=== PATIENT | male | born 1965 | race Caucasian/White ===

== ENCOUNTER 2021-03-20 21:07 | Emergency (ER) | payer MEDICAID, SELFPAY ==
--- NOTE | ~2021-03-20 | CT_ITS ---
EXAMINATION: CT brain wo con DATE: 03/20/2021 21:36 INDICATION: Head injury. Neck pain. TECHNIQUE: Computed tomography (CT) of the head was performed without intravenous contrast. The mA wa s adjusted according to patient size. Iterative reconstruction technique was employed. The dose-lengt h product was 605.33 mGy-cm. COMPARISON: None FINDINGS: There is no intracranial hemorrhage, acute infarction, or abnormal intracranial mass lesion . The ventricles are normal in size. The mastoid air cells are normal. The paranasal sinuses are magnus r. There is left superior scalp soft tissue swelling. IMPRESSION: 1. Normal brain. Reviewed, dictated and finalized at location A. IMPRESSION: 1. Normal brain.
--- NOTE | ~2021-03-20 | CT_ITS ---
EXAMINATION: CT cervical spine wo con DATE: 03/20/2021 21:37 INDICATION: Neck pain. Fall. TECHNIQUE: Computed tomography (CT) of the cervical spine was performed without intravenous contrast. Automated exposure control and iterative reconstruction technique were employed. The dose-length pro duct was 407.11 mGy-cm. COMPARISON: None FINDINGS: There is 12 degrees levoscoliosis of cervical spine. Vertebral body heights are normal. The re is mildly decreased disc height at C6-C7. The following disc levels are specifically discussed: C2-C3: There is no uncovertebral joint osteoarthritis. There is moderate right and mild left facet nila int osteoarthritis. There is no neural foraminal stenosis. There is no central canal stenosis. C3-C4: There is mild bilateral uncovertebral joint osteoarthritis. There is moderate right and mild l eft facet joint osteoarthritis. There is no neural foraminal stenosis. There is no central canal sten osis. C4-C5: There is mild bilateral uncovertebral joint osteoarthritis. There is mild right facet joint os teoarthritis. There is no neural foraminal stenosis. There is no central canal stenosis. C5-C6: There is mild bilateral uncovertebral joint osteoarthritis. There is mild right facet joint os teoarthritis. There is no neural foraminal stenosis. There is no central canal stenosis. C6-C7: There is mild bilateral uncovertebral joint osteoarthritis. There is mild bilateral facet join t osteoarthritis. There is no neural foraminal stenosis. There is no central canal stenosis. C7-T1: There is no uncovertebral joint osteoarthritis. There is moderate right and severe left facet joint osteoarthritis. There is mild left neural foraminal stenosis. There is no central canal stenosi s. IMPRESSION: 1. No fracture. 2. Mild cervical spondylosis. Reviewed, dictated and finalized at location A.
--- NOTE | 2021-03-20 21:22 | ED.GENADULT ---
HPI - General Adult General Chief complaint: Fall Stated complaint: fall +loc Time Seen by Provider: 03/20/21 21:18 Source: RN notes reviewed History of Present Illness HPI narrative: Patient presents emergency department via EMS for a fall. 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 he denies any pain at this time he denies any headaches vision changes chest pain shortness of breath abdominal pain nausea vomiting or any other symptom Related Data Home Medications Medication Instructions Recorded Confirmed Lactobacillus acidophilus 100 mg PO DAILY 03/20/21 03/20/21 [Acidophilus] acetaminophen 325 mg PO ONCE 03/20/21 03/20/21 albuterol sulfate [Ventolin HFA] INHALATION 03/20/21 amino ac-protein hydr-whey pro ea 03/20/21 [ProSource] atorvastatin 10 mg PO DAILY 03/20/21 03/20/21 baclofen 10 mg PO BID 03/20/21 03/20/21 ergocalciferol (vitamin D2) 1,250 mcg PO WEEKLY 03/20/21 03/20/21 furosemide 40 mg PO DAILY 03/20/21 03/20/21 imatinib [Gleevec] 400 mg PO DAILY 03/20/21 03/20/21 levothyroxine 125 mcg PO DAILY 03/20/21 03/20/21 magnesium hydroxide [Milk of 03/20/21 Magnesia] melatonin 3 mg PO HS PRN 03/20/21 03/20/21 zozmgyydqova-naeo-mqmmx acid 1 tablet PO DAILY 03/20/21 03/20/21 [Centrum] sertraline 50 mg PO DAILY 03/20/21 03/20/21 Allergies Allergy/AdvReac Type Severity Reaction Status Date / Time No Known Allergies Allergy Verified 03/20/21 22:02 Review of Systems Review of Systems: Gen.: Denies fevers or chills Eyes: Denies eye pain or visual change ENT: Denies congestion Respiratory: Denies shortness of breath or cough CV: Denies chest pain or palpitations GI: Denies abdominal pain nausea, emesis or diarrhea Musculoskeletal: Denies back pain or muscle pain Neuro: See HPI Skin: Denies rash Except as documented, all other systems reviewed and negative [facility] Past Medical History Medical History (Updated 03/20/21 @ 22:21 by Eriberto Marino DO) Ataxia Social History Social History (Updated 03/20/21 @ 21:23 by Eriberto Marino DO) Smoking status: Never smoker Exam Narrative: APPEARANCE: No acute distress, nontoxic, resting in bed EYES: EOMI, PERRL HEENT: Normocephalic, small area swelling ecchymosis over left superior lateral scalp, nurse patient no facial tenderness Neck: Supple no midline tenderness palpation RESPIRATORY: No respiratory distress Clear to auscultation bilaterally with no rhonchi wheezing or rales. CARDIOVASCULAR: Regular rate and rhythm without murmurs rubs or gallops. ABDOMINAL: Soft, nontender, nondistended, no rebound or guarding MUSCULOSKELETAl: Moves all extremities. No clubbing, cyanosis or edema. Tender to palpation of bilateral upper lower extremities NEURO: Awake and alert x 4. Following commands, speech normal, no focal deficits SKIN:: Warm, dry. No rashes lesions or abrasions PSYCHIATRIC: Normal affect/mood, Course Course Emergency Course: Patient's brother is present states patient is at baseline Discussed with patient results of workup and diagnosis. Discussed need for follow-up with primary care, proper use of medication, and reasons to return to the emergency department. Patient understands and agrees to current treatment plan Vital Signs Vital signs: Vital Signs Temperature 98.2 F 03/20/21 21:29 Pulse Rate 110 H 03/20/21 21:29 Respiratory Rate 18 03/20/21 21:29 Blood Pressure 164/112 H 03/20/21 21:29 Pulse Oximetry 98 03/20/21 21:29 Temperature 98.2 F 03/20/21 21:29 Pulse Rate 110 H 03/20/21 21:29 Respiratory Rate 18 03/20/21 21:29 Blood Pressure 164/112 H 03/20/21 21:29 Pulse Oximetry 98 03/20/21 21:29 Medical D
[2021-03-20 21:29] VITALS: BP 164/112; PULSE 110; RESP 18; TEMP 36.8; O2SAT 98
== END 2021-03-20 22:53 | disposition home or self-care (01) ==
PROVIDERS: Emergency Provider Emergency Medicine
DX: S00.93XA Contusion of unspecified part of head, initial encounter (principal); M47.812 Spondylosis without myelopathy or radiculopathy, cervical region; W01.0XXA Fall on same level from slipping, tripping and stumbling without subsequent striking against object, initial encounter
CPT/HCPCS: 70450; 72125; 99284

== ENCOUNTER 2021-08-30 10:00 | Outpatient (RCR) | payer BC, SELFPAY ==
--- NOTE | 2021-08-02 08:21 | PTOPEVAL ---
PHYSICAL THERAPY EVALUATION AND PLAN OF CARE Thank you for referring Jermaine Beavers to [facility].? The patient is scheduled to be seen for therapy? 2x/week for 4 weeks. Please review, sign, date and return this plan of care MERY. I agree with and certify that the following plan of care is medically necessary. 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 He has Family decreased balance and has frequent falls. The most recent was going down a driveway on an incline and he lost his balance. States that he is not able to get off the floor by himself. He states he does have to have help to get up either froma person or from furniture. He walks on the treadmill 4-5x/wk for 30minutes. Pain Score Pain Score 0: Self Report Lower Extremity Muscle Strength Testing Hip Strength Bilateral Hip Flexion Strength 5 Normal Hip Extension Strength 3- Fair - Hip Abduction Strength 4- Good - Hip Medial Rotation Strength 3- Fair - Hip Lateral Rotation Strength 3- Fair - Knee Strength Bilateral Knee Flexion Strength 4+ Good + Knee Extension Strength 3 Fair Muscle Length Testing Muscle Length Testing Santosh Test Shortened Muscles Short (R) Iliopsoas,Short (L) Rectus Femoris Two-Joint Hip Flexor Shortened Muscles Short (R) Iliopsoas,Short (L) Iliopsoas,Short (R) Rectus Femoris,Short (L) Rectus Femoris Left Hamstring Length -35 Query Text:(90 - 90 Position) Right Hamstring Length -35 Query Text:(90 - 90 Position) Balance Assessment Mendes Balance Assessment 27/56 Comments always tends to touch on the // bars and at home describes that he would be touching furniture or a counter for most dynamic balance tasks Time Up Go (TUG) Timed Up and Go Test (TUG) (Seconds) 12 Assistive Devices None 5 Time Sit to Stand Time in Seconds 17.82 5 Time Sit to Stand Comments with arm rests; balance shifts Query Text:Daphney
--- NOTE | 2021-08-30 10:29 | PTOPEVAL ---
PHYSICAL THERAPY DISCHARGE NOTE Thank you for referring Jermaine Beavers to [facility].? Please review, sign, date and return this plan of care MERY. I agree with and certify that the following plan of care is medically necessary. Referring Physician Date Attending Provider: Flavio Garcia MD Discharge Outpatient Past Medical History Diagnosis ataxia, falls, poor balance Onset 10 years Cause spinocerebellar ataxia Subjective Information reports no new falls. Feels Query Text:As Reported By Patient/ like his balance and Family especially strength have improved quite a bit. He has his HEP and discussed with me how to progress and create variety in his HEP Pain Score Pain Score 0: Self Report Lower Extremity Muscle Strength Testing Hip Strength Bilateral Hip Flexion Strength 5 Normal Hip Extension Strength 3 Fair Hip Abduction Strength 4+ Good + Knee Strength Bilateral Knee Flexion Strength 5 Normal Knee Extension Strength 4 Good Balance Assessment Mendes Balance Assessment 40/56 Time Up Go (TUG) Timed Up and Go Test (TUG) (Seconds) 11 Assistive Devices None Comments 1 month ago = 12second 5 Time Sit to Stand Time in Seconds 11.10 5 Time Sit to Stand Comments no armrests used today Query Text:Normative Data: If Greater 1monht ago = 17.82 with arm Than 15 Seconds, 74% Increase Risk for rests Recurrent Falls with arm rests; balance shifts forward to toes PT Clinical Summary Jermaine is a 56 yo male presenting to outpatient physical therapy with diagnosis of spinocerebellar ataxia, a progressive disease causing poor balance and impaired gait. He participated in a month of physical therapy and was educated on HEP. He is consistent and committed to HEP and is understanding of how to use HEP to his advantage. I recommend Jermaine continue his HEP and we will discharge from PT at this time. PT Services Indicated No Rehabilitation Potential Good Patient/Caregiver's Personal Goals for improve strength and balance, Rehabilitation decrease falls Potential Barriers to
== END 2021-08-30 15:55 | disposition home or self-care (01) ==
LOC: ANHPT 10:00
PROVIDERS: PCP Family Medicine; Visit Provider Family Medicine
DX: G11.8 Other hereditary ataxias (principal)
CPT/HCPCS: 97110; 97162; 97530

== ENCOUNTER 2021-11-03 09:20 | Outpatient (CLI) | payer BC, SELFPAY ==
--- NOTE | ~2021-11-03 | MR_ITS ---
EXAMINATION: MR brain/brain stem wo con DATE: 11/03/2021 10:14 INDICATION: Ataxia, unspecified. TECHNIQUE: Magnetic resonance imaging (MRI) of the brain and brainstem was performed without intraven ous contrast. COMPARISON: Head CT 03/20/2021 FINDINGS: There is a punctate old microhemorrhage in left occipital lobe. There are scattered areas o f nonspecific increased T2-weighted signal intensity in the cerebral white matter, which is within no rmal limits for the patient's age. There is no acute ischemic infarct or abnormal mass lesion. The ve ntricles are normal in size. There is mild mucosal thickening in right maxillary sinus. The orbits ar e normal. The mastoid air cells are normal. IMPRESSION: 1. Punctate old microhemorrhage in left occipital lobe. Reviewed, dictated and finalized at location B.
== END 2021-11-03 09:21 | disposition home or self-care (01) ==
PROVIDERS: PCP Family Medicine; Visit Provider Psychiatry & Neurology Neurology
DX: R27.0 Ataxia, unspecified (principal)
CPT/HCPCS: 70551

== ENCOUNTER 2022-09-11 16:02 | Emergency (ER) | payer MEDICARE, MEDICAID, SELFPAY ==
[2022-09-11 16:16] VITALS: BP 141/122; PULSE 94; RESP 16; TEMP 36.8; O2SAT 99
--- NOTE | 2022-09-11 16:21 | ED.BACK ---
HPI - Back Pain/Injury General Chief Complaint: Back Pain/Injury Stated Complaint: Back Pain Time Seen by Provider: 09/11/22 16:18 Source: patient, RN notes reviewed and old records reviewed Mode of arrival: ambulatory Limitations: no limitations History of Present Illness HPI Narrative: 57-year-old male presents to the [facility] with complaints of low back pain. Patient states he has a history of lower back pain. Had seen a chiropractor and was told that he was out of alignment and needed a cortisone shot in his back. States that chiropractor told him to go the urgent care or to his primary for further evaluation. Related Data Home Medications Medication Instructions Recorded Confirmed aspirin 81 mg tablet,delayed 81 mg EVERY OTHER DAY 09/11/22 09/11/22 release atorvastatin 10 mg tablet 10 mg DAILY 09/11/22 09/11/22 lisinopril 5 mg tablet 5 mg DAILY 09/11/22 09/11/22 Allergies Allergy/AdvReac Type Severity Reaction Status Date / Time No Known Allergies Allergy Verified 09/11/22 16:21 Review of Systems Review of Systems: All systems reviewed & are unremarkable except as noted in HPI and below Constitutional: Constitutional: Reports no additional constitutional complaints Eyes: Eyes: Reports no additional eye complaints ENT: Reports system reviewed and no additional complaints, except as documented Cardiovascular: Cardiovascular: Reports no additional cardiovascular complaints, Denies chest pain and Denies dyspnea Respiratory: Respiratory: Reports no additional respiratory complaints, Denies chest congestion, Denies cough and Denies dyspnea Gastrointestinal: Gastrointestinal: Reports no additional gastrointestinal complaints, Denies abdominal pain, Denies nausea and Denies vomiting Musculoskeletal: Musculoskeletal: Reports as per HPI Integumentary/Breasts: Skin/Breast: Reports system reviewed and no additional complaints, except as docu Neurologic: Reports system reviewed and no additional complaints, except as documented Psychiatric: Psychiatric: Reports no additional psychiatric complaints Allergic/Immunologic: Allergic/Immunologic: Reports no additional allergic/immunologic complaints [facility] Past Medical History Medical History Ataxia Elevated glucose Screening for lipid disorders Screening for prostate cancer Spinocerebellar ataxia Social History Social History Smoking status: Never smoker Comments At the time of my signature, I reviewed and agree with the nursing past medical, surgical, social, and family history. There is no relevant family history pertinent to the patient complaint. Exam Const: General: cooperative, healthy appearing, comfortable, no acute distress, well developed, alert and well nourished Nutritional Appearance: well nourished Orientation/consciousness: patient oriented x3 Limitations: no limitations HENMT: Head: normal to inspection Ears: hearing grossly normal bilaterally and external ears normal Face/Nose/Sinus: Normal external nose present, Normal nares present, Normal nasal mucous membranes and turbinates present and normal facial exam Face and sinus: normal facial exam Mouth: Yes Normal oral and palatal mucosa present, Yes lip normal and Yes moist mucous membranes Throat: posterior oropharynx normal and uvula midline Eyes: General: appearance normal, both eyes and all related structures Alignment and Position: alignment normal Periorbital: periorbital findings normal Conjunctivae: conjunctivae normal Pupils: Equal, round and reactive pupils present EOM: EOMs intact bilaterally Neck: Neck: normal visual inspection, full ROM, no lymphadenopathy and no meningeal signs Chest: Chest palpation & inspection: normal inspection of the chest Resp: Effort & Inspection: normal respiratory effort and able to speak in complete sentences Auscultation: clear
== END 2022-09-11 16:32 | disposition home or self-care (01) ==
PROVIDERS: Emergency Provider Nurse Practitioner; PCP Family Medicine
DX: M54.50 Low back pain, unspecified (principal)
CPT/HCPCS: 99213; G0463

== ENCOUNTER 2023-07-23 13:30 | Outpatient (RCR) | payer MEDICARE, MEDICAID, SELFPAY ==
--- NOTE | 2023-06-25 14:48 | OPREHPOC ---
Outpatient Therapy Plan of Care This is a Multidisciplinary Plan of Care that may contain components documented by all disciplines (PT, OT, and ST.) PT Problem 1 PT Problem #1 Knowledge Deficit PT Goal 1 Goal * indep with HEP PT Problem 2 PT Problem #2 Pain PT Goal 1 Goal decrease pain in back, to increase activity level 1* pt report pain rating at worst of 4/10 2* self assessment Oswestry score of 40% limitation in activity level 3* pt report standing/walking tolerance of 45 minutes PT Problem 3 PT Problem #3 Impaired Flexibility PT Goal 1 Goal improve flexibility of trunk and hips, to decrease meat puller trunk/spine and improve motions prone hip extension 5' 1* R 2* L anterior hip/quad length with prone knee flexion 115' 3* R 4* L 5* with all 4 arch/sag, pt have minimal movement of spine PT Problem 4 PT Problem #4 Impaired Functional Mobil PT Goal 1 Goal increase mobility and strength to improve home tasks ability 1* 2 minute walking test distance of 475' strength of hip abduction with side lying hip abduction x 15 reps to 10' hip abduction 2* R 3* L
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
--- NOTE | 2023-07-23 14:10 | PTOPDC ---
Assessment and note entered by Suyapa Burleson, PT Evaluation Information Assessment Status Discharge Diagnosis low back pain Onset 05-30-23 Subjective Information is doing his usual daily things; no limitations with standing and walking, back to doing everything again; no pain in the past week; doing all the exercises; Reported Pain Level Pain Score 0: Self Report Additional Pain Score Comments no pain in the past week Assessment PT Clinical Summary Jermaine has received 8 PT sessions. Compared to the initial evaluation: pain has decreased from 6-8/10 to 0/10; Oswestry self assessment from 60% to 8% limitation in activity level; no limitations with sit, stand, sleep or walking tolerances; strength of LE's and trunk has improved; 2 minute walking test distance increased by 50'; standing trunk extension does not cause pain; increase flexibility of anterior hip/quad and hip extension bilateral; education completed for HEP and posture education. The goals were achieved. Discharge PT. He is to continue with his HEP. Plan of Care PT Services Indicated No
== END 2023-07-23 14:44 | disposition home or self-care (01) ==
LOC: ANHPT 13:30
PROVIDERS: PCP Family Medicine; Visit Provider Family Medicine
DX: S39.012D Strain of muscle, fascia and tendon of lower back, subsequent encounter (principal)
CPT/HCPCS: 97014; 97110; 97112; 97140; 97161; 97530; G0283

== ENCOUNTER 2023-12-05 08:39 | Emergency (ER) | payer MEDICARE, MEDICAID, SELFPAY ==
[2023-12-05 08:47] VITALS: BP 171/94; PULSE 99; RESP 16; TEMP 36.3; O2SAT 99
[2023-12-05 10:13] VITALS: BP 157/99; PULSE 90; RESP 16; TEMP 36.6; O2SAT 99
[2023-12-05] MEDS: SODIUM CHLORIDE 0.9% IV 1,000 ML 999 ML IV CONT (10:14)
[2023-12-05 10:15] VITALS: BP 153/103; PULSE 88; RESP 16; TEMP 36.8; O2SAT 97
[2023-12-05] MEDS: LORazepam INJ (*CRX) 2 MG/ML VIAL 1 MG IV PUSH (10:15)
--- NOTE | 2023-12-05 10:17 | ED.GENADULT ---
[facility] - General Adult General Chief complaint: Unspecified Stated complaint: vomiting, havent slept in 2 days Time Seen by Provider: 12/05/23 09:36 History of Present Illness HPI narrative: 58-year-old male history of spinocerebellar ataxia presents to the emergency room for evaluation insomnia. He states last time he slept with Sunday evening. States that he is unable to turn his brain off this, and relays increased amounts of anxiety. Patient stated he took amitriptyline 2 days ago, but denied aid in his sleep. No history of insomnia. Denies any injury or trauma. Associated symptoms include headache, dizziness, nausea. Patient states that he is anxious and has been pacing. Related Data Home Medications Medication Instructions Recorded Confirmed aspirin 81 mg tablet,delayed 81 mg EVERY OTHER DAY 09/11/22 09/11/22 release atorvastatin 10 mg tablet 10 mg DAILY 09/11/22 09/11/22 lisinopril 5 mg tablet 5 mg DAILY 09/11/22 09/11/22 Allergies Allergy/AdvReac Type Severity Reaction Status Date / Time No Known Allergies Allergy Verified 12/05/23 08:40 Review of Systems Review of Systems: ROS unremarkable except for stated in HPI PMFSH Past Medical History Medical History Ataxia Elevated glucose Screening for lipid disorders Screening for prostate cancer Spinocerebellar ataxia Social History Social History Smoking status: Never smoker Exam Narrative: GENERAL: Well-appearing, well-nourished, physical limitations secondary to spinal cerebellar ataxia, anxious HEAD: Normocephalic, atraumatic. EYES: Conjunctivae normal, PERRLA and EOMI. CHEST: Clear to auscultation. No respiratory distress. No wheezes rales or rhonchi. HEART: Regular rate and rhythm. No murmur heard. Normal peripheral pulses. EXTREMITIES: Normal range of motion. No edema. No clubbing or cyanosis SKIN: Warm, dry, no rash. No noted wounds NEURO: No focal deficits. Alert and oriented x3. MAEW. CN's II-XI intact bilaterally, ataxic and wide-based gait PSYCH: Cooperative. Normal mood and affect. Course Vital Signs Vital signs: Vital Signs Temperature 36.3 C L 12/05/23 08:47 Pulse Rate 99 12/05/23 08:47 Respiratory Rate 16 12/05/23 08:47 Blood Pressure 171/94 H 12/05/23 08:47 Pulse Oximetry 99 12/05/23 08:47 Oxygen Delivery Room Air 12/05/23 08:47 Temperature 36.8 C 12/05/23 10:15 Pulse Rate 88 12/05/23 10:15 Respiratory Rate 16 12/05/23 10:15 Blood Pressure 153/103 H 12/05/23 10:15 Pulse Oximetry 97 12/05/23 10:15 Oxygen Delivery Room Air 12/05/23 08:47 Medical Decision Making Vital Signs Vital Signs: Vital Signs Temperature 36.3 C L 12/05/23 08:47 Pulse Rate 99 12/05/23 08:47 Respiratory Rate 16 12/05/23 08:47 Blood Pressure 171/94 H 12/05/23 08:47 Pulse Oximetry 99 12/05/23 08:47 Oxygen Delivery Room Air 12/05/23 08:47 Temperature 36.8 C 12/05/23 10:15 Pulse Rate 88 12/05/23 10:15 Respiratory Rate 16 12/05/23 10:15 Blood Pressure 153/103 H 12/05/23 10:15 Pulse Oximetry 97 12/05/23 10:15 Oxygen Delivery Room Air 12/05/23 08:47 Lab Data 12/05/23 10:13 12/05/23 10:13 Labs: Lab Results 12/05/23 Range/Units 10:13 WBC 6.5 (4.5-10.0) K/mm3 RBC 4.96 (4.6-6.20) M/mm3 Hgb 15.7 (14.0-18.0) g/dL Hct 46.2 (42.0-52.0) % MCV 93.1 (80-100) fl MCH 31.7 (26-34) pg MCHC 34.0 (32-36) g/dl RDW 11.9 (11.5-14.5) % Plt Count 220 (150-375) k/mm3 MPV 9.6 (7.4-10.4) fl Immature Gran % (Auto) 0.3 (0-0.5) % Neut % (Auto) 76.4 H (45.5-73.1) % Lymph % (Auto) 16.6 L (18.3-44.2) % [place] % (Auto) 6.2 (2.6-8.5) % Eos % (Auto) 0.2 (0-4.4) % Baso % (Auto) 0.3 (0.2-1.2) % Lymph # (Auto) 1.07 (0.9-3.2) K/mm3 [place] # (Auto) 0.4 (0.1-0.6) K/mm3 Eos # (Aut
[2023-12-05 10:26] LABS: Basophils Percent Auto 0.3 % (0.2-1.2); Eosinophils Percent Auto 0.2 % (0-4.4); Hematocrit 46.2 % (42.0-52.0); Hemoglobin 15.7 g/dL (14.0-18.0); Immature Granulocyte Absolute 0.02 K/mm3 (0.00-0.031); Immature Granulocyte Percent A 0.3 % (0-0.5); Lymphocytes Absolute Auto 1.07 K/mm3 (0.9-3.2); Lymphocytes Percent Auto 16.6 % (18.3-44.2); Mean Corpuscular Hemoglobin 31.7 pg (26-34); Mean Corpuscular Volume 93.1 fl (80-100); Mean Platelet Volume 9.6 fl (7.4-10.4); Monocytes Absolute Auto 0.4 K/mm3 (0.1-0.6); Monocytes Percent Auto 6.2 % (2.6-8.5); Neutrophils Absolute Auto 4.9 K/mm3 (1.3-6.7); Neutrophils Percent Auto 76.4 % (45.5-73.1); Platelet Count Result 220 k/mm3 (150-375); Red Blood Count 4.96 M/mm3 (4.6-6.20); Red Cell Distribution Width 11.9 % (11.5-14.5); White Blood Count 6.5 K/mm3 (4.5-10.0)
[2023-12-05 10:36] LABS: Alanine Aminotransferase 35 U/L (6-50); Albumin Level 5.1 g/dL (3.5-5.1); Alkaline Phosphatase 101 U/L (38-126); Anion Gap 10 mmol/L (4-12); Aspartate Amino Transferase 25 U/L (17-59); Bilirubin,Total 0.9 mg/dL (0.2-1.3); Blood Urea Nitrogen 12 mg/dL (9-20); Calcium 9.3 mg/dL (8.4-10.2); Carbon Dioxide 26 mmol/L (22-30); Chloride 104 mmol/L (98-107); Estimated CRCL calculation 125 ml/min; Estimated Glomerular Filt Rate > 60; Glucose 122 mg/dL (65-110); Sodium 140 mmol/L (137-145)
[2023-12-05 11:00] VITALS: BP 147/88; PULSE 80; RESP 16; TEMP 36.7; O2SAT 100
[2023-12-05 12:07] VITALS: BP 148/90; PULSE 84; RESP 16; TEMP 36.6; O2SAT 98
== END 2023-12-05 12:09 | disposition home or self-care (01) ==
PROVIDERS: Emergency Provider Nurse Practitioner Family; PCP Family Medicine
DX: G47.00 Insomnia, unspecified (principal); G11.19 Other early-onset cerebellar ataxia
CPT/HCPCS: 36415; 80053; 85025; 96361; 96374; 99284; J2060; J7030

== ENCOUNTER 2024-06-04 07:42 | Outpatient (CLI) | payer MEDICARE, MEDICAID, SELFPAY ==
--- NOTE | ~2024-06-04 | US_ITS ---
Thyroid ultrasound. Clinical History: Thyroid nodule Findings: Real-time sonography of the thyroid gland was performed. The right lobe measures 4.5 x 1.8 x 2.4 cm. The left lobe measures 4.1 x 1.3 x 0.9 cm. The isthmus is 3 mm in AP diameter. At the right lower pole, there is a 3.0 x 1.7 x 2.0 cm isoechoic solid nodule. Impression: 3.0 cm TI-RADS 3 nodule. Given size, FNA is advised to establish a histologic diagnosis.. Reviewed, dictated and finalized at location . [employer] Impression: 3.0 cm TI-RADS 3 nodule. Given size, FNA is advised to establish a histologic d iagnosis..
== END 2024-06-04 07:43 | disposition home or self-care (01) ==
LOC: MICIMG 07:43
PROVIDERS: PCP Family Medicine; Visit Provider Family Medicine
DX: E04.1 Nontoxic single thyroid nodule (principal)
CPT/HCPCS: 76536

== ENCOUNTER 2024-06-24 10:10 | Outpatient (CLI) | payer MEDICARE, MEDICAID, SELFPAY ==
--- NOTE | ~2024-06-24 | US_ITS ---
EXAMINATION: US FNA w image guidance DATE: 06/24/2024 11:19 INDICATION: Thyroid nodule COMPARISON: 06/04/2024 TECHNIQUE: A time-out was performed to verify the patient's name, date of , and procedure to be performed . The procedure and its benefits and risks were discussed with the patient. Risks specifically discus sed included bleeding and infection. The patient understood the risks and agreed to proceed. The neck was prepped and draped in the usual sterile manner. 3 mL 1% lidocaine was used for local anesthesia . 7 passes were made with a 25G needle into the lesion. Appropriate needle location was documented with continuous sonographic guidance. A sterile bandage was applied. There were no immediate compli cations. FINDINGS: Grayscale ultrasound images demonstrate biopsy needles advanced into the 3.0 cm TI-RADS 3 right thyro id nodule of concern. IMPRESSION: 1. Successful ultrasound-guided fine needle aspiration of the 3.0 cm TI-RADS 3 right thyroid nodule of concern. Reviewed, dictated and finalized at location A. 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
== END 2024-06-24 10:11 | disposition home or self-care (01) ==
LOC: ANHIMG 10:12
PROVIDERS: PCP Family Medicine; Visit Provider Family Medicine
DX: E04.1 Nontoxic single thyroid nodule (principal)
CPT/HCPCS: 10005; 88172; 88173; 88177; 88305

== ENCOUNTER 2025-07-14 13:30 | Outpatient (CLI) | payer MEDICARE, MEDICAID, SELFPAY ==
--- NOTE | ~2025-07-14 | US_ITS ---
EXAMINATION: US thyroid DATE: 07/14/2025 13:45 INDICATION: Nontoxic single thyroid nodule TECHNIQUE: Multiple ultrasound images of the thyroid were obtained. COMPARISON: 06/04/2024 and 06/24/2024 FINDINGS: The right thyroid lobe measures 4.7 x 2.0 x 1.9 cm. The left thyroid lobe measures 3.6 x 1.2 x 1.2 cm. No significant interval change in a 2.9 cm solid slightly hypoechoic wider than tall nodule with smooth margins and without echogenic foci in the right thyroid lobe (TI-RADS 4, moderately suspicious , FNA if >=1.5 cm, annual followup is >=1 cm). No new thyroid nodules identified. There is normal echotexture, echogenicity and vascular flow throughout the remainder of the thyroid gland. IMPRESSION: 1. No interval change in a 2.9 cm Ti rads 4 right thyroid nodule with prior biopsy deemed nondiagnostic but without evident malignancy. Given the lack of interval change could consider either continued annual ultrasound follow-up or repeat biopsy. Reviewed, dictated and finalized at location A. [employer] DEVELOPER IMPRESSION: 1. No interval change in a 2.9 cm Ti rads 4 right thyroid nodule with prior bio psy deemed nondiagnostic but without evident malignancy. Given the lack of inte rval change could consider either continued annual ultrasound follow-up or repe at biopsy.
== END 2025-07-14 13:31 | disposition home or self-care (01) ==
LOC: MICIMG 13:31
PROVIDERS: PCP Family Medicine; Visit Provider Family Medicine
DX: E04.1 Nontoxic single thyroid nodule (principal)
CPT/HCPCS: 76536